=== PATIENT | female | born 1930 | race Caucasian/White ===

== ENCOUNTER 2017-02-28 16:28 | Inpatient (IN) ==
[2017-02-28] MEDS ORDERED: DILTIAZEM 50 MG/10 ML VIAL IV ONE (17:29)
[2017-02-28] MEDS ORDERED: DILTIAZEM 50 MG/10 ML VIAL IV STA (17:31)
[2017-02-28] MEDS ORDERED: DILTIAZEM 100 MG VIAL.ADD IV ONE (17:37)
--- NOTE | 2017-02-28 17:39 | Emergency Department Note ---
Daryl Hawkins Rolonda, am scribing for, and in the presence of, Chriss Siddiqui MD 17:37. Artur Hawkins Phillip K, MD, personally performed the services described in this documentation, ascribed by Sukhi Brito in my presence, and it is both accurate and complete [id number] . Arrival - Arrival ED Nursing Triage Note: pt went to [facility] for [facility]out and was sent to ER for elevated HR - pt states that she was not having any s/s of elevated heart rate or chest pain or SOB Mode of Arrival: Ambulatory - History of Present Illness Onset (ago): hour(s) Consistency: constant Severity: mild, moderate Severity scale (1-10): 4 Date of Last Menstrual Period: deepali <Chriss Siddiqui - Last Filed: 02/28/17 17:39> <Robbie Garza - Last Filed: 02/28/17 19:06> - Arrival Chief Complaint: Arrhythmia/Palpitations Stated Complaint: HIGH HEART RATE Time Seen by Provider: 02/28/17 17:31 - History of Present Illness HPI Narrative: Pt is an 86 y/o female who presents to the ED for further evaluation of elevated HR with an onset of earlier today. Pt states that she was at the clinic for a f/u on her gout when she was referred to the ED. Pt denies any PMHx of Afib and denies taking blood thinners. Pt denies CP and SOB. No other complaint/pain in ED. (Sukhi Brito) Pt is an 86 y/o female who presents to the ED for further evaluation of elevated HR with an onset of earlier today. Pt states that she was at the clinic for a f/u on her gout when she was referred to the ED. Pt denies any PMHx of Afib and denies taking blood thinners. Pt denies CP and SOB. No other complaint/pain in ED. (Chriss Siddiqui) Allergies/Adverse Reactions: Allergies Allergy/AdvReac Type Severity Reaction Status Date / Time acetaminophen [From Tylenol] Allergy Nose Bleed Verified 02/28/17 16:53 aspirin Allergy Nose Bleed Verified 02/28/17 16:53 Home Medications: Home Medications Medication Instructions Recorded Confirmed Type Multivit-Min/FA/Lycopen/Lutein 1 each PO QAM 02/28/17 02/28/17 History [Centrum Silver Tablet] Review of System - Review of System 12 point system: reviewed and no additional remarkable complaints except as stated - Review of System Constitutional: Absent: chills Eyes: Absent: discharge Head/Ears/Nose/Throat: Absent: earache Respiratory: Absent: cough Cardiovascular: Present: other (elevated HR). Absent: chest pain Gastrointestinal: Absent: abdominal pain Genitourinary female: Absent: abnormal menses Musculoskeletal: Absent: arm pain Skin: Absent: rash Neurological: Absent: headache Psychiatric: Absent: anxiety Endocrine: Absent: cold intolerance Hematological/Lymphatic: Absent: easy bleeding Allergic/Immunologic: Absent: facial swelling <Chriss Siddiqui - Last Filed: 02/28/17 17:39> Medical,Surgical,& Family Hx - Medical History Cardio: History of: Cardiovascular Problems (episode of a fib x 1 year ago) - Social History Smoking Status: Never smoker Frequency of Alcohol Use: None Type of Drug Use: None <Chriss Siddiqui - Last Filed: 02/28/17 17:39> Exam - General General appearance: alert, in no apparent distress - Head Head exam: Present: atraumatic, normocephalic - Eye Eye exam: Present: PERRL, EOMI - ENT ENT exam: Present: mucous membranes moist. Absent: mucous membranes dry - Neck Neck exam: Present: full ROM. Absent: tenderness - Chest Chest inspection: Present: symmetric chest wall rise. Absent: tenderness - Respiratory Respiratory exam: Present: normal lung sounds bilaterally. Absent: wheezes - Cardiovascular Cardiovascular exam: Present: tachycardia, irregular rhythm - Abdominal Exam Abdominal exam: Present: soft, normal bowel sounds. Absent: tenderness - Extremities Exam Extremities exam: Present: full ROM. Absent: tenderness - Back Exam Back exam: Present: full ROM. Absent: tenderness - Neurological Exam Neurological exam: Present: alert, oriented X3, CN II-XII intact - Psychiatric Psychiatric exam: Present: normal affect, normal mood - Skin Skin exam: Present: warm, dry, intact, normal color. Absent: rash <Chriss Siddiqui - Last Filed: 02/28/17 17:39> Vital Signs: Vital Signs Temperature 97.8 F 02/28/17 18:03 Pulse Rate 133 H 02/28/17 18:03 Respiratory Rate 18 02/28/17 18:03 Blood Pressure 139/96 02/28/17 18:03 O2 Sat by Pulse Oximetry 97 02/28/17 16:53 Course <Chriss Siddiqui - Last Filed: 02/28/17 17:39> <Robbie Garza - Last Filed: 02/28/17 19:06> Course Narrative: Patient went to the nurse practitioner today because both of her ankles were swollen and she was of the opinion that this was due to gout. Her ankles are not red hot or painful. When she was evaluated by the nurse practitioner it was found that she was in atrial fibrillation the onset is unknown. She has been in atrial fibrillation in the past but it spontaneously resolved. The case was discussed with the hospitalist who recommended that the turbine subassembler be contacted to admit the patient. She is currently on diltiazem drip and her rate is between 1010 and 120. Case was discussed with turbine subassembler who recommended the patient be started on Eliquis 5 mg twice a day and oral diltiazem 240 mg extended release once a day. Therefore the patient will be admitted to the hospital under the turbine subassembler Dr. Martinez (Robbie Garza) Results - Labs CBC & BMP: 02/28/17 17:26 02/28/17 17:26 <Robbie Garza - Last Filed: 02/28/17 19:06> Disposition Case discussed with: patient, patient's family <Chriss Siddiqui - Last Filed: 02/28/17 17:39> <Robbie Garza - Last Filed: 02/28/17 19:06> Clinical Impression: Atrial fibrillation with RVR Disposition: Still a Patient Condition: Guarded
[2017-02-28] MEDS ORDERED: SODIUM CHLORIDE 0.9% 100 ML IV ONE (17:40)
[2017-02-28 17:47] LABS: Basophils # 0.1 10*3/uL (0.0-0.2); Basophils % 0.7 % (0.0-0.8); Eosinophils # 0.2 10*3/uL (0.0-0.87); Eosinophils % 2.5 % (0.00-10.9); Hematocrit 42.7 VOL% (35.7-47.0); Immature Granulocytes % 0.2 %; Immature Granulocytes Absolute 0.02 #; Lymphocytes # 2.8 10*3/uL (1.4-4.0); Lymphocytes % 31.5 % (21.3-54.2); Mean Corpuscular HGB Conc 32.8 GM/DL (32-36); Mean Corpuscular Hemoglobin 29 PG (27-34); Mean Corpuscular Volume 87.5 FL (87-102); Mean Platelet Volume 9.6 FL (9.6-12.0); Monocytes # 0.9 10*3/uL (0.11-0.8); Monocytes % 9.5 % (1.7-12.7); Neutrophils % 55.6 % (38.7-73.9); Platelet Count 311 T/CUMM (130-400); Red Blood Count 4.88 MC/CUMM (3.8-5.5); Red Cell Distribution Width 13.9 % (9.3-17.3)
[2017-02-28] MEDS: DILTIAZEM INJ 100 MG in SODIUM CHLORIDE 0.9% 100 ML IV SCH (17:55)
--- NOTE | 2017-02-28 18:08 | XRay Report ---
Portable chest Exam date: 02/28/2017 5:32 PM Indication: Shortness of breath, cough Comparison: August 18, 2013 Findings: Heart size is now mildly enlarged. Increased left basilar opacity, likely atelectasis given low lung volumes. No acute osseous abnormalities. Visualized upper abdomen demonstrates no acute pathology. Impression: Left basilar atelectasis PROCEDURE INTERPRETED AT [facility] DEPARTMENT OF RADIOLOGY Final Report Signed by: Iris Novoa MD
[2017-02-28 18:30] LABS: Free T4 (Free Thyroxine) 1.3 NG/DL (0.76-1.46); Magnesium 2.1 MG/DL (1.8-2.4)
[2017-02-28 18:36] LABS: Alanine Aminotransferase 20 U/L (13-56); Albumin 3.4 G/DL (3.4-5.0); Alkaline Phosphatase 87 U/L (45-117); Aspartate Amino Transferase 24 U/L (0-37); Blood Urea Nitrogen 13 MG/DL (7-18); Calcium 9.7 MG/DL (8.5-10.1); Glucose 88 MG/DL (74-106); Osmolality,Calculated 277.4 MOS/KG (273-304); Potassium 4.3 MMOL/L (3.5-5.1); Sodium 140 MMOL/L (136-145); Total Protein 7.5 G/DL (6.4-8.3); Troponin I Only < 0.015 NG/ML (0.00-0.045)
[2017-02-28] MEDS ORDERED: MAGNESIUM SULF RIDER 2 GM in PREMIX 1 EACH IV PRN (19:07)
[2017-02-28] MEDS ORDERED: MAGNESIUM SULF RIDER 4 GM in PREMIX 1 EACH IV PRN (19:07)
[2017-02-28] MEDS ORDERED: ONDANSETRON 4 MG/2 ML VIAL IV PRN (19:07)
[2017-02-28] MEDS ORDERED: DILTIAZEM CD 120 MG CAPSULE PO STA (19:13)
[2017-02-28] MEDS ORDERED: APIXABAN 5 MG TABLET ONE (19:49)
[2017-02-28] MEDS ORDERED: DILTIAZEM CD 120 MG CAPSULE PO ONE (21:45)
[2017-02-28] MEDS: APIXABAN 5 MG TABLET PO SCH (22:02)
[2017-02-28 22:07] LABS: Troponin I Only < 0.015 NG/ML (0.00-0.045)
[2017-02-28 23:49] LABS: Troponin I Only < 0.015 NG/ML (0.00-0.045)
[2017-03-01 01:34] LABS: Troponin I Only < 0.015 NG/ML (0.00-0.045)
[2017-03-01] MEDS: DILTIAZEM INJ 100 MG in SODIUM CHLORIDE 0.9% 100 ML IV SCH (02:28)
[2017-03-01] MEDS ORDERED: DILTIAZEM CD 240 MG CAPSULE PO SCH (10:00)
--- NOTE | 2017-03-01 10:00 | Order Completion Report ---
See report scanned to EMR
[2017-03-01] MEDS: APIXABAN 5 MG TABLET PO SCH ×2 (11:25→22:24)
[2017-03-01] MEDS: DILTIAZEM CD 120 MG CAPSULE PO SCH (11:25)
[2017-03-01] MEDS: PANTOPRAZOLE 40 MG TABLET PO SCH (11:25)
--- NOTE | 2017-03-01 15:49 | Order Completion Report ---
See report scanned to EMR
--- NOTE | 2017-03-01 16:35 | Cardiology History & Physical ---
Humphrey Hawkins Lesley, NP, am scribing for, and in the presence of, Mike Brody MD 16:34. Assessment and Plan - Time spent with patient Time spent with patient: Greater than 30 minutes (record review, assessment and documentation) (1) Obesity (BMI 30-39.9) Status: Chronic Assessment and plan: SEE PLAN LISTED BELOW Current Visit: Yes (2) Advanced age Status: Chronic Assessment and plan: SEE PLAN LISTED BELOW Current Visit: Yes (3) High risk medication use Status: Acute Assessment and plan: SEE PLAN LISTED BELOW Current Visit: Yes (4) Atrial fibrillation with RVR Status: Acute Assessment and plan: SEE PLAN LISTED BELOW Current Visit: Yes History of Present Illness Chief complaint: AFib, onset uncertain History of present illness: TRIAL MANAGER: None PCP: GILBERT Welch Ms. Olivier is a 86 year old WF, who presented to her PCPs office yesterday with complaints of swelling to bilateral feet from gout. She was found to have high heart rate, and an EKG revealed atrial fibrillation. The patient does state that this happened once before approximately 3 years ago, but she did not see a manager library at that time. The patient is a fair historian. Cardiac risk factors include obesity, advanced age, sedentary lifestyle. Past medical history includes gout and arthritis. Past surgical history includes bladder tack. Family history is negative for cardiac problems, she states her mom of the flu, and her dad of being drunk. She states she only takes vitamins daily. She denies a lifetime history of smoking, alcohol use, or drug use. The patient presented to PCP with complaints of bilateral swelling in the lower extremities from count. She denied pain to her feet, but stated she was having difficulty walking due to the swelling. The swelling is improved this morning. Found to have an elevated heart rate and an EKG revealed atrial fibrillation with RVR. EKG from the emergency room shows a rate in the 130s. The patient denies shortness of breath, heart palpitations, chest pain, pressure or tightness. She states she was completely asymptomatic other than the swelling in her feet. She denies alleviating or aggravating factors. The patient received 10 mg IV bolus of Cardizem in the emergency room, and was started on a diltiazem drip. She was given diltiazem CD 240 mg once in the ER and Eliquis 5 mg was initiated. Currently, the patient is being monitored on telemetry unit. She appears to be in atrial fibrillation, with a controlled rate in the 70s- 80s. At this time we will stop the Cardizem drip, and continue oral diltiazem CD 240 mg once daily. Continue Eliquis 5 mg p.o. twice daily. Her blood pressure seems to be tolerating this with systolic in the 90s to 110 range. Labs reviewed and are essentially unremarkable other than a creatinine of 1.10, BNP 223, total bilirubin 1.6 and liver enzymes unremarkable. Thyroid studies unremarkable. Cardiac biomarkers have remained negative. Chest x-ray revealed a left basilar atelectasis, heart size mildly enlarged, no other acute processes noted. This morning I will repeat an EKG and obtain an echocardiogram. We will continue to monitor the patient on the telemetry unit throughout the day. Will also obtain a fasting lipid profile. IMPRESSION AND PLAN: 1. ATRIAL FIBRILLATION - onset unknown, rate controlled, will start oral Diltiazem CD and continue Eliquis. Pt. reports an episode of AFIB approximately 3 years ago, but did not follow up. 2. OBESITY - the patient would benefit from dietary on awake counselor on a heart healthy diet. 3. ADVANCED AGE - consider home health on discharge if needed. Patient personally interviewed and examined chart reviewed in the presence of GILBERT Hodge and is described. Post case is discussed and discussed this with the nursing staff. The patient is as above with lower extremity edema this developed persistent the last several weeks. The patient was evaluated and found to have atrial fibrillation with rapid ventricular response. On medication the patient is done well with good rate control. The patient's on anticoagulation has no contraindications to anticoagulation. She is a chads vasc score of 4 is already started on Eliquis. The duration of atrial for ablation is unknown. Also her ejection fraction 45%. 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 I did discuss the options of anticoagulation and they would prefer to stay with the Eliquis. Also discussed with them the plans that after discharge and continue anticoagulation rate control and treatment for edema as needed. We will marked the patient as an outpatient and will need at least 3 weeks and a coagulation and consider an antiarrhythmic. At some point then cardioversion will be a consideration. They voice understanding of the indications for therapy as stated and the risk. Hopefully be discharged over the next 24-48 hours. Home Medications Medication Instructions Recorded Confirmed Type Multivit-Min/FA/Lycopen/Lutein 1 each PO QAM 02/28/17 02/28/17 History [Centrum Silver Tablet] Allergies Allergy/AdvReac Type Severity Reaction Status Date / Time acetaminophen [From Tylenol] Allergy Nose Bleed Verified 02/28/17 16:53 aspirin Allergy Nose Bleed Verified 02/28/17 16:53 - Constitutional Constitutional: Absent: anorexia, chills, fatigue, frequent falls, headache(s), lethargy, malaise, weakness - EENT Nose, mouth and throat: Absent: headache(s), vertigo - Cardiovascular Cardiovascular: Present: edema. Absent: chest pain at rest, chest pain with activity, claudication, diaphoresis, dyspnea, dyspnea on exertion, radiating jaw , neck or arm pain, lightheadedness, palpitations - Respiratory Respiratory: Absent: cough, dyspnea, dyspnea on exertion, wheezing - Gastrointestinal Gastrointestinal: Absent: abdominal pain, bloating, change in bowel habits, coffee ground emesis, cramping, diarrhea, dyspepsia, heartburn, hematemesis, hematochezia, melena, nausea, vomiting - Genitourinary Genitourinary: Absent: difficulty urinating, dysuria - Musculoskeletal Musculoskeletal: Present: arthralgias, joint swelling - Neurological Neurological: Absent: abnormal gait, abnormal speech, behavioral changes, confusion, dizziness, frequent falls, syncope - Psychiatric Psychiatric: Absent: anxiety, confusion, depression - Endocrine Endocrine: Absent: fatigue - Hematologic/Lymphatic Hematologic/Lymphatic: Absent: easy bleeding Medical,Surgical,& Family Hx - Medical History Cardio: History of: Cardiac Dysrhythmia Rheumatology: History of;: Gout Gastrointestinal: No history of: GERD Musculoskeletal: History of: Musculoskeletal Problems (OA) No history of: Amputation - Surgical History Cardiac Surgeries: Patient Denies: Cardiac Catheterization Thoracic Surgeries: Patient denies;: Organ Transplant Reproductive Surgeries: Surgical HX of;: Genitourinary Surgery - Social History Smoking Status: Never smoker Frequency of Alcohol Use: None Type of Drug Use: None Marital Status: Lives With:: Spouse Functional capacity: independent ambulation Cardiology Physical Exam - Constitutional Vitals: Vital Signs Temp Pulse Resp BP Pulse Ox 97.6 F 67 16 95/59 96 03/01/17 08:00 03/01/17 08:00 03/01/17 08:00 03/01/17 08:00 03/01/17 08:00 Intake and Output 02/28/17 03/01/17 03/01/17 23:59 07:59 15:59 Intake Total 220 / 220 Balance 220 / 220 Intake: IV 100 / 100 Cardizem Inj 100 mg In Ns 100 / 100 100 ml @ 5 MG/HR 5 mls/ hr IV TITRATE GENE Rx#: [id number] Oral 120 / 120 Other: Voiding Method Toilet Bedside Commode # Voids 1 2 Weight 208 lb 205 lb Patient Weight 03/01/17 23:59 Weight 205 lb Exam: General: Appears well with no apparent distress. Obese, pleasant and cooperative. Appears comfortable. HEENT: PERRL, normocephalic, atraumatic. Mucous membranes moist. No jaundice noted. Conjunctiva moist and clear, sclerae anicteric. Neck: No JVD, no thyromegaly or lymphadenopathy noted. No carotid bruit appreciated. Cardiac: Irregular rate and rhythm. No murmur rub or gallop. PMI is nondisplaced. Lungs: Clear to auscultation without accessory muscle use to assist the respiratory pattern. No oxygen in use. Abdomen: Soft, bowel sounds normoactive. Nontender and nondistended. No abdominal bruit or thrill noted. No masses noted. Musculoskeletal: No fluid collection. Decreased range of motion is noted to knees. Extremities: No clubbing, cyanosis noted. No edema noted. Upper extremity pulses 2+. Lower extremity pulses 2+. Capillary refill less than 3 seconds. Skin: Warm and dry no unusual lesions or rashes. No skin breakdown appreciated. Neuro: Awake, alert and oriented 3. Moves all extremities well without hemiparesis or paralysis. No essential tremor is appreciated. Result/EKG - Labs CBC & BMP: 02/28/17 17:26 02/28/17 17:26 Lab Results: I have reviewed the past 24 hour labs Labs: Laboratory Results - last 24 hr 02/28/17 02/28/17 02/28/17 17:26 17:26 17:26 WBC 9.0 RBC 4.88 Hgb 14.0 Hct 42.7 MCV 87.5 MCH 29 MCHC 32.8 RDW 13.9 Plt Count 311 MPV 9.6 Neut % (Auto) 55.6 Lymph % (Auto) 31.5 [place] % (Auto) 9.5 Eos % (Auto) 2.5 Baso % (Auto) 0.7 Neut # (Auto) 5.0 Lymph # (Auto) 2.8 [place] # (Auto) 0.9 H Eos # (Auto) 0.2 Baso # (Auto) 0.1 Immature Gran % 0.2 Nucleated RBC % 0.0 Immature Gran # 0.02 Nucleated RBCs # 0.00 Immature Plt Fraction 0.0 Sodium 140 Potassium 4.3 Chloride 106 Carbon Dioxide 25 Anion Gap 13.3 BUN 13 Creatinine 1.10 H GFR Calculation 52 BUN/Creatinine Ratio 11.00 Glucose 88 Calculated Osmolality 277.4 Calcium 9.7 Magnesium 2.1 Total Bilirubin 1.60 H AST 24 ALT 20 Alkaline Phosphatase 87 Total Creatine Kinase CK-MB (CK-2) Troponin I < 0.015 B-Natriuretic Peptide Total Protein 7.5 Albumin 3.4 Globulin 4.1 H Albumin/Globulin Ratio 0.8 L Free T4 1.30 TSH 3rd Generation 2.320 02/28/17 02/28/17 02/28/17 19:14 21:11 23:09 WBC RBC Hgb Hct MCV MCH MCHC RDW Plt Count MPV Neut % (Auto) Lymph % (Auto) [place] % (Auto) Eos % (Auto) Baso % (Auto) Neut # (Auto) Lymph # (Auto) [place] # (Auto) Eos # (Auto) Baso # (Auto) Immature Gran % Nucleated RBC % Immature Gran # Nucleated RBCs # Immature Plt Fraction Sodium Potassium Chloride Carbon Dioxide Anion Gap BUN Creatinine GFR Calculation BUN/Creatinine Ratio Glucose Calculated Osmolality Calcium Magnesium Total Bilirubin AST ALT Alkaline Phosphatase Total Creatine Kinase 107 102 CK-MB (CK-2) 3.3 3.3 Troponin I < 0.015 < 0.015 B-Natriuretic Peptide 223 H Total Protein Albumin Globulin Albumin/Globulin Ratio Free T4 TSH 3rd Generation 03/01/17 00:53 WBC RBC Hgb Hct MCV MCH MCHC RDW Plt Count MPV Neut % (Auto) Lymph % (Auto) [place] % (Auto) Eos % (Auto) Baso % (Auto) Neut # (Auto) Lymph # (Auto) [place] # (Auto) Eos # (Auto) Baso # (Auto) Immature Gran % Nucleated RBC % Immature Gran # Nucleated RBCs # Immature Plt Fraction Sodium Potassium Chloride Carbon Dioxide Anion Gap BUN Creatinine GFR Calculation BUN/Creatinine Ratio Glucose Calculated Osmolality Calcium Magnesium Total Bilirubin AST ALT Alkaline Phosphatase Total Creatine Kinase 103 CK-MB (CK-2) 3.4 Troponin I < 0.015 B-Natriuretic Peptide Total Protein Albumin Globulin Albumin/Globulin Ratio Free T4 TSH 3rd Generation - Diagnostic Findings Procedure: Chest x-ray: report reviewed by me - EKG EKG results: interpreted by me EKG shows: atrial fibrillation Quality Measures - VTE Contraindication to Pharmacological VTE Prophylaxis: High Risk of Bleeding Ronn Hawkins John Timothy, MD, personally performed the services described in this documentation, ascribed by Emely Yin NP in my presence, and it is both accurate and complete 634 .
[2017-03-01] MEDS: DICLOFENAC 1% GEL 100 GM TUBE TOP SCH ×2 (18:11→22:25)
[2017-03-02 05:24] LABS: Basophils # 0.1 10*3/uL (0.0-0.2); Basophils % 0.7 % (0.0-0.8); Eosinophils # 0.2 10*3/uL (0.0-0.87); Hematocrit 36.4 VOL% (35.7-47.0); Hemoglobin 11.8 GM/DL (12.0-16.0); Immature Granulocytes % 0.3 %; Immature Granulocytes Absolute 0.02 #; Lymphocytes # 2.1 10*3/uL (1.4-4.0); Lymphocytes % 28.1 % (21.3-54.2); Mean Corpuscular HGB Conc 32.4 GM/DL (32-36); Mean Corpuscular Hemoglobin 29 PG (27-34); Mean Corpuscular Volume 87.9 FL (87-102); Mean Platelet Volume 9.6 FL (9.6-12.0); Monocytes # 0.9 10*3/uL (0.11-0.8); Monocytes % 12.1 % (1.7-12.7); Neutrophils # 4.1 10*3/uL (1.4-7.4); Neutrophils % 55.8 % (38.7-73.9); Platelet Count 251 T/CUMM (130-400); Red Blood Count 4.14 MC/CUMM (3.8-5.5); White Blood Count 7.3 T/CUMM (4-12)
[2017-03-02 05:53] LABS: Calcium 8.3 MG/DL (8.5-10.1); Magnesium 1.8 MG/DL (1.8-2.4); Risk Ratio 3.28; VLDL CHOLESTEROL 11.6 MG/DL
[2017-03-02 08:07] VITALS: BP 133/67
[2017-03-02] MEDS: DILTIAZEM CD 120 MG CAPSULE PO SCH (09:19)
[2017-03-02] MEDS: APIXABAN 5 MG TABLET PO SCH (09:19)
[2017-03-02] MEDS: PANTOPRAZOLE 40 MG TABLET PO SCH (09:21)
[2017-03-02] MEDS: DICLOFENAC 1% GEL 100 GM TUBE TOP SCH (09:23)
--- NOTE | 2017-03-02 09:58 | Discharge Summary ---
Hospital Course - Hospital Course Hospital Course: Patient was admitted to the emergency room because atrial fibrillation that is of unknown duration. She was seen by GILBERT Welch NP and sent to the emergency room because of elevated heart rate. Apparently she was seen by nurse [facility] for the purpose of arthritic symptomatology and then was inadvertently found to have increased heart rate. Patient has no prior history of heart failure coronary disease angina PND orthopnea syncope near syncope. She had noted recently she was having some lower extremity edema develop. Her echocardiogram revealed left ventricular size to be normal with mild global hypokinesis ejection fraction 45%. Right and left atrial dilated some. Valvular structures without real severe pathology but did have mild tricuspid regurgitation with moderately elevated right-sided pressures. The patient's heart rates are much better improved. She is on Eliquis. I think that we can discharge the patient on a little bit increased diltiazem to follow with her in about 3 weeks in the office. She will let us know she has any problems issues. We did discuss with her during this hospitalization the need for anticoagulation for stroke prevention and she is a significant risk for strokes. Also discussed our goal of maintaining heart rates in the and converting her after adequate period of time of anticoagulation first pharmacologic attempt followed by electrocardioversion if necessary. Her and her family voiced understanding this. We will plan on discharging today. - Time spent with patient Time with patient DS: Greater than 30 minutes Diagnosis - Discharge Diagnosis (1) Obesity (BMI 30-39.9) Status: Chronic (2) Advanced age Status: Chronic (3) High risk medication use Status: Acute (4) Atrial fibrillation with RVR Status: Acute Discharge Plan - Discharge Data Disposition: Disch To Home/Self Care Condition at Discharge: Stable Discharge Diet: advance to your usual diet Activity: resume usual activities as tolerated Hygiene: no restrictions Weight Bearing at Discharge: full weight bearing Driving: no restrictions Contact your physician if you experience:: Shortness of breath - Discharge Medications New Diclofenac 1% Gel [Voltaren 1% Gel] 1 applic TOP TID PRN #1 applic PRN Reason: Pain Diltiazem Cd Cap [Cardizem CD] 180 mg PO BID #60 capsule Apixaban [Eliquis] 5 mg PO BID #60 tablet Continue Multivit-Min/FA/Lycopen/Lutein [Centrum Silver Tablet] 1 each PO QAM - Follow Up or Referral Follow Up: Mike Brody MD [Physician] - - Forms/Instructions Exam - Constitutional Vitals: Period Temp Pulse Resp BP Sys/[place] Pulse Ox Last 24 Hr 96.6 F-99.4 F 69-105 14-20 96-133/62-79 92-95 Exam: General: no apparent distress. Obese, pleasant and cooperative. Appears comfortable. HEENT: PERRL, normocephalic, atraumatic. Mucous membranes moist. No jaundice noted. Conjunctiva moist and clear, sclerae anicteric. Neck: No JVD, no thyromegaly or lymphadenopathy noted. No carotid bruit appreciated. Cardiac: Irregular rate and rhythm. No murmur rub or gallop. PMI is nondisplaced. Lungs: Clear to auscultation without accessory muscle use to assist the respiratory pattern. No oxygen in use. Abdomen: Soft, bowel sounds normoactive. Nontender and nondistended. Musculoskeletal: No fluid collection. Decreased range of motion is noted to knees. Extremities: No clubbing, cyanosis noted. No edema noted. Upper extremity pulses 2+. Lower extremity pulses 2+. Capillary refill less than 3 seconds. Skin: Warm and dry no unusual lesions or rashes. No skin breakdown appreciated. Neuro: Awake, alert and oriented 3. Moves all extremities well without hemiparesis or paralysis. No essential tremor is appreciated. Psychiatric: Cognitive function grossly intact. Discharge Results Procedures and tests throughout hospitalization: Pending Orders 03/03/17 04:00 BMP w/ Mg [Basic Metabolic Panel w/Mg] IN AM CBC [Comp Blood Count Auto Diff] IN AM 03/04/17 04:00 BMP w/ Mg [Basic Metabolic Panel w/Mg] IN AM CBC [Comp Blood Count Auto Diff] IN AM Echocardiogram: Please see full report. Ejection fraction at 45%. Right and left atrium dilated some. There was moderately elevated right-sided pressures. Labs on day of discharge: Labs from last 24 hours 03/02/17 03/02/17 04:59 04:59 WBC 7.3 RBC 4.14 Hgb 11.8 L D Hct 36.4 MCV 87.9 MCH 29 MCHC 32.4 RDW 14.0 Plt Count 251 MPV 9.6 Neut % (Auto) 55.8 Lymph % (Auto) 28.1 [place] % (Auto) 12.1 Eos % (Auto) 3.0 Baso % (Auto) 0.7 Neut # (Auto) 4.1 Lymph # (Auto) 2.1 [place] # (Auto) 0.9 H Eos # (Auto) 0.2 Baso # (Auto) 0.1 Immature Gran % 0.3 Nucleated RBC % 0.0 Immature Gran # 0.02 Nucleated RBCs # 0.00 Immature Plt Fraction 0.0 Sodium 143 Potassium 4.0 Chloride 109 H Carbon Dioxide 26 Anion Gap 12.0 BUN 13 Creatinine 1.00 GFR Calculation 58 BUN/Creatinine Ratio 13.00 Glucose 98 Calculated Osmolality 284.0 Calcium 8.3 L Magnesium 1.8 Triglycerides 58 Cholesterol 128 LDL Cholesterol 84.0 VLDL Cholesterol 11.6 HDL Cholesterol 39 L Heart Disease Risk Ratio 3.28 - Impressions T4 and TSH were normal. Lipids are stable. Chemistries unremarkable. Nondetectable troponin. DS: Provider Date of admission: 02/28/17 19:07 Primary care physician: Kylah [facility] NP Attending physician on admission: Eliseo Martinez MD Discharging clinician: Mike Brody MD Expected date of discharge: 03/02/17
[2017-03-02] MEDS ORDERED: DILTIAZEM CD 180 MG CAPSULE PO SCH (21:00)
--- NOTE | 2017-03-06 20:22 | Order Completion Report ---
See report scanned to EMR
== END 2017-03-02 10:50 | disposition home or self-care (01) | DRG 310 ==
LOC: N.ED 16:28 → N.TELEN 19:50 → N.EDINP 20:10 → N.TELEN 20:16
PROVIDERS: ADMIT Internal Medicine Cardiovascular Disease; ATTEND Internal Medicine Cardiovascular Disease

== ENCOUNTER 2017-08-08 11:20 | Inpatient (IN) ==
[2017-08-08] MEDS ORDERED: SODIUM CHLORIDE 0.9% 1,000 ML IV STA (11:43)
[2017-08-08] MEDS ORDERED: SODIUM CHLORIDE 0.9% 1,000 ML IV PRN ×3 (11:49→20:07)
[2017-08-08 11:56] LABS: Basophils # 0.1 10*3/uL (0.0-0.2); Basophils % 0.4 % (0.0-0.8); Eosinophils % 0.3 % (0.00-10.9); Hematocrit 31.4 VOL% (35.7-47.0); Hemoglobin 9.3 GM/DL (12.0-16.0); Immature Granulocytes % 0.6 %; Immature Granulocytes Absolute 0.07 #; Lymphocytes # 1.9 10*3/uL (1.4-4.0); Lymphocytes % 16.5 % (21.3-54.2); Mean Corpuscular HGB Conc 29.6 GM/DL (32-36); Mean Corpuscular Hemoglobin 25 PG (27-34); Mean Corpuscular Volume 84.4 FL (87-102); Mean Platelet Volume 9.2 FL (9.6-12.0); Monocytes # 1.2 10*3/uL (0.11-0.8); Neutrophils # 8.3 10*3/uL (1.4-7.4); Neutrophils % 72.2 % (38.7-73.9); Platelet Count 396 T/CUMM (130-400); Red Blood Count 3.72 MC/CUMM (3.8-5.5); Red Cell Distribution Width 15.8 % (9.3-17.3); White Blood Count 11.5 T/CUMM (4-12)
[2017-08-08 12:03] LABS: INR 1.1; PT Patient Result 11.3 SECS
[2017-08-08 12:15] LABS: Albumin 2.2 G/DL (3.4-5.0); Bilirubin,Total 0.8 MG/DL (0.2-1.0); Osmolality,Calculated 279.4 MOS/KG (273-304); Potassium 4.2 MMOL/L (3.5-5.1); Total Protein 5.9 G/DL (6.4-8.3)
[2017-08-08 12:30] LABS: Apearance,Urine Slightly Hazy (Clear); Bacteria,Urine Few /HPF (Few); Bilirubin,Urine Negative (Negative); Blood, Urine Negative (Negative); Glucose,Urine (UA) Negative (Negative); Hyaline Casts,Urine 3 /LPF (0-3); Ketones,Urine Negative (Negative); Mucus,Urine Occasional /LPF (Occasional); Nitrite,Urine Negative (Negative); Protein,Urine 100 MG/DL; RBC,Urine 1 /HPF (0-4); Urine Specific Gravity 1.016 (1.001-1.035); Urine Urobilinogen < 2.0 EU/DL (0.2-1.0); WBC,Urine 3 /HPF (0-6)
[2017-08-08 12:31] LABS: Urine Color Yellow (Yellow)
[2017-08-08 19:41] LABS: Basophils % 0.4 % (0.0-0.8); Eosinophils # 0.1 10*3/uL (0.0-0.87); Eosinophils % 0.7 % (0.00-10.9); Hematocrit 34.9 VOL% (35.7-47.0); Hemoglobin 10.9 GM/DL (12.0-16.0); Immature Granulocytes % 0.4 %; Immature Granulocytes Absolute 0.04 #; Lymphocytes # 2.3 10*3/uL (1.4-4.0); Lymphocytes % 21.3 % (21.3-54.2); Mean Corpuscular HGB Conc 31.2 GM/DL (32-36); Mean Corpuscular Hemoglobin 26 PG (27-34); Mean Corpuscular Volume 83.1 FL (87-102); Monocytes % 9.4 % (1.7-12.7); Neutrophils # 7.4 10*3/uL (1.4-7.4); Neutrophils % 67.8 % (38.7-73.9); Platelet Count 392 T/CUMM (130-400); Red Cell Distribution Width 15.6 % (9.3-17.3); White Blood Count 10.9 T/CUMM (4-12)
[2017-08-08] MEDS ORDERED: ACETAMINOPHEN 325 MG TABLET PO PRN (19:56)
[2017-08-08 20:01] LABS: Calcium 8.1 MG/DL (8.5-10.1); Osmolality,Calculated 281.1 MOS/KG (273-304); Potassium 4.4 MMOL/L (3.5-5.1)
[2017-08-08] MEDS ORDERED: PROTHROMBIN COMPLEX IV ONE ×2 (20:02→20:07)
[2017-08-08 20:12] LABS: INR 1.1; PT Patient Result 11.1 SECS
[2017-08-08] MEDS: SODIUM CHLORIDE 0.45% 1,000 ML IV SCH (23:06)
[2017-08-08] MEDS: DILTIAZEM CD 180 MG CAPSULE PO SCH (23:24)
[2017-08-09 06:13] LABS: Basophils # 0.1 10*3/uL (0.0-0.2); Basophils % 0.5 % (0.0-0.8); Eosinophils # 0.1 10*3/uL (0.0-0.87); Eosinophils % 0.9 % (0.00-10.9); Hematocrit 34.2 VOL% (35.7-47.0); Hemoglobin 10.1 GM/DL (12.0-16.0); Immature Granulocytes % 0.6 %; Immature Granulocytes Absolute 0.07 #; Lymphocytes % 32.7 % (21.3-54.2); Mean Corpuscular HGB Conc 29.5 GM/DL (32-36); Mean Corpuscular Hemoglobin 25 PG (27-34); Mean Corpuscular Volume 85.9 FL (87-102); Mean Platelet Volume 9.3 FL (9.6-12.0); Monocytes # 1.3 10*3/uL (0.11-0.8); Monocytes % 10.3 % (1.7-12.7); Neutrophils # 6.8 10*3/uL (1.4-7.4); Platelet Count 371 T/CUMM (130-400); Red Blood Count 3.98 MC/CUMM (3.8-5.5); Red Cell Distribution Width 15.5 % (9.3-17.3); White Blood Count 12.4 T/CUMM (4-12)
[2017-08-09 07:42] LABS: Calcium 8.1 MG/DL (8.5-10.1); Potassium 4.2 MMOL/L (3.5-5.1)
[2017-08-09] MEDS: PANTOPRAZOLE 40 MG TABLET PO SCH (10:44)
[2017-08-09] MEDS: MULTIVITAMIN (CENTRUM) TABLET PO SCH (10:44)
[2017-08-09] MEDS: DILTIAZEM CD 180 MG CAPSULE PO SCH ×2 (10:47→20:40)
[2017-08-09] MEDS ORDERED: SODIUM CHLORIDE 0.9% 250 ML IV ONE (11:14)
[2017-08-09] MEDS ORDERED: FLECAINIDE 100 MG TABLET PO SCH (11:30)
[2017-08-10] MEDS: SODIUM CHLORIDE 0.45% 1,000 ML IV SCH (02:05)
[2017-08-10 02:51] LABS: Basophils # 0.1 10*3/uL (0.0-0.2); Basophils % 0.7 % (0.0-0.8); Eosinophils # 0.1 10*3/uL (0.0-0.87); Eosinophils % 1.2 % (0.00-10.9); Hematocrit 34.9 VOL% (35.7-47.0); Hemoglobin 10.7 GM/DL (12.0-16.0); Immature Granulocytes % 0.5 %; Immature Granulocytes Absolute 0.05 #; Lymphocytes # 2.8 10*3/uL (1.4-4.0); Lymphocytes % 25.9 % (21.3-54.2); Mean Corpuscular HGB Conc 30.7 GM/DL (32-36); Mean Corpuscular Hemoglobin 26 PG (27-34); Mean Corpuscular Volume 85.3 FL (87-102); Mean Platelet Volume 9.2 FL (9.6-12.0); Monocytes # 1.3 10*3/uL (0.11-0.8); Monocytes % 11.9 % (1.7-12.7); Neutrophils # 6.5 10*3/uL (1.4-7.4); Neutrophils % 59.8 % (38.7-73.9); Platelet Count 349 T/CUMM (130-400); Red Blood Count 4.09 MC/CUMM (3.8-5.5); Red Cell Distribution Width 15.3 % (9.3-17.3); White Blood Count 10.8 T/CUMM (4-12)
[2017-08-10 04:40] LABS: Calcium 8.1 MG/DL (8.5-10.1); Potassium 4.5 MMOL/L (3.5-5.1)
[2017-08-10] MEDS: BISACODYL 5 MG TABLET PO SCH ×3 (09:13→23:30)
[2017-08-10] MEDS: PANTOPRAZOLE 40 MG TABLET PO SCH (09:13)
[2017-08-10] MEDS: MULTIVITAMIN (CENTRUM) TABLET PO SCH (09:13)
[2017-08-10] MEDS: DILTIAZEM CD 180 MG CAPSULE PO SCH ×2 (09:13→21:12)
[2017-08-10] MEDS ORDERED: POLYETHYLENE GLYCOL POWDER 255 GM BOTTLE PO ONE (18:00)
[2017-08-11] MEDS: PANTOPRAZOLE 40 MG TABLET PO SCH (10:50)
[2017-08-11] MEDS: DILTIAZEM CD 180 MG CAPSULE PO SCH ×2 (10:50→21:16)
[2017-08-11] MEDS: MULTIVITAMIN (CENTRUM) TABLET PO SCH (10:51)
[2017-08-11] MEDS: SODIUM CHLORIDE 0.45% 1,000 ML IV SCH ×2 (11:26→21:17)
[2017-08-12] MEDS: SODIUM CHLORIDE 0.45% 1,000 ML IV SCH ×2 (04:14→07:10)
[2017-08-12 05:11] LABS: Basophils # 0.1 10*3/uL (0.0-0.2); Basophils % 0.5 % (0.0-0.8); Eosinophils # 0.2 10*3/uL (0.0-0.87); Eosinophils % 1.4 % (0.00-10.9); Hematocrit 34.9 VOL% (35.7-47.0); Hemoglobin 10.9 GM/DL (12.0-16.0); Immature Granulocytes % 0.4 %; Immature Granulocytes Absolute 0.04 #; Lymphocytes # 1.8 10*3/uL (1.4-4.0); Lymphocytes % 17.2 % (21.3-54.2); Mean Corpuscular HGB Conc 31.2 GM/DL (32-36); Mean Corpuscular Hemoglobin 26 PG (27-34); Mean Corpuscular Volume 84.5 FL (87-102); Mean Platelet Volume 8.9 FL (9.6-12.0); Monocytes # 1.1 10*3/uL (0.11-0.8); Monocytes % 10.3 % (1.7-12.7); Neutrophils # 7.5 10*3/uL (1.4-7.4); Neutrophils % 70.2 % (38.7-73.9); Platelet Count 311 T/CUMM (130-400); Red Blood Count 4.13 MC/CUMM (3.8-5.5); Red Cell Distribution Width 15.4 % (9.3-17.3); White Blood Count 10.7 T/CUMM (4-12)
[2017-08-12 06:05] LABS: Osmolality,Calculated 289.4 MOS/KG (273-304); Potassium 4.7 MMOL/L (3.5-5.1)
[2017-08-12] MEDS: MULTIVITAMIN (CENTRUM) TABLET PO SCH (09:52)
[2017-08-12] MEDS: DILTIAZEM CD 180 MG CAPSULE PO SCH ×2 (09:52→20:53)
[2017-08-12] MEDS: PANTOPRAZOLE 40 MG TABLET PO SCH (09:52)
[2017-08-12] MEDS ORDERED: DIAZEPAM 5 MG TABLET PO ONE (13:00)
[2017-08-13 05:57] LABS: Basophils # 0.1 10*3/uL (0.0-0.2); Basophils % 0.5 % (0.0-0.8); Eosinophils # 0.1 10*3/uL (0.0-0.87); Eosinophils % 1.2 % (0.00-10.9); Hematocrit 35.7 VOL% (35.7-47.0); Hemoglobin 10.9 GM/DL (12.0-16.0); Immature Granulocytes % 0.4 %; Immature Granulocytes Absolute 0.04 #; Lymphocytes # 1.9 10*3/uL (1.4-4.0); Lymphocytes % 17.2 % (21.3-54.2); Mean Corpuscular HGB Conc 30.5 GM/DL (32-36); Mean Corpuscular Hemoglobin 26 PG (27-34); Mean Corpuscular Volume 84.4 FL (87-102); Mean Platelet Volume 9.3 FL (9.6-12.0); Monocytes # 1.2 10*3/uL (0.11-0.8); Monocytes % 11.2 % (1.7-12.7); Neutrophils # 7.5 10*3/uL (1.4-7.4); Neutrophils % 69.5 % (38.7-73.9); Platelet Count 314 T/CUMM (130-400); Red Blood Count 4.23 MC/CUMM (3.8-5.5); Red Cell Distribution Width 15.6 % (9.3-17.3); White Blood Count 10.8 T/CUMM (4-12)
[2017-08-13 06:27] LABS: Osmolality,Calculated 283.8 MOS/KG (273-304)
[2017-08-13] MEDS: DILTIAZEM CD 180 MG CAPSULE PO SCH (08:46)
[2017-08-13] MEDS: MULTIVITAMIN (CENTRUM) TABLET PO SCH (08:47)
[2017-08-13] MEDS: PANTOPRAZOLE 40 MG TABLET PO SCH (08:47)
[2017-08-13 11:36] VITALS: BP 108/59
[2017-08-13] MEDS: SODIUM CHLORIDE 0.45% 1,000 ML IV SCH (13:41)
== END 2017-08-13 13:45 | disposition hospice, home (50) | DRG 356 ==
LOC: EDUNIT# → EDBD → N.ED 11:20 → N.EDINP 20:15 → N.2E 20:24

== ENCOUNTER 2017-08-21 09:27 | Inpatient (IN) ==
[2017-08-21] MEDS ORDERED: ONDANSETRON 4 MG/2 ML VIAL IV PRN (10:42)
[2017-08-21] MEDS ORDERED: PROMETHAZINE 25 MG/1 ML VIAL IM PRN (10:42)
[2017-08-21 11:31] LABS: Basophils # 0.1 10*3/uL (0.0-0.2); Basophils % 0.6 % (0.0-0.8); Eosinophils # 0.2 10*3/uL (0.0-0.87); Eosinophils % 1.4 % (0.00-10.9); Hematocrit 37.5 VOL% (35.7-47.0); Hemoglobin 11.4 GM/DL (12.0-16.0); Immature Granulocytes % 0.5 %; Immature Granulocytes Absolute 0.06 #; Lymphocytes # 1.8 10*3/uL (1.4-4.0); Lymphocytes % 16.4 % (21.3-54.2); Mean Corpuscular HGB Conc 30.4 GM/DL (32-36); Mean Corpuscular Hemoglobin 25 PG (27-34); Mean Corpuscular Volume 83.1 FL (87-102); Mean Platelet Volume 9.3 FL (9.6-12.0); Monocytes % 9.1 % (1.7-12.7); Neutrophils # 7.9 10*3/uL (1.4-7.4); Platelet Count 299 T/CUMM (130-400); Red Blood Count 4.51 MC/CUMM (3.8-5.5); Red Cell Distribution Width 15.9 % (9.3-17.3); White Blood Count 10.9 T/CUMM (4-12)
[2017-08-21 11:54] LABS: PT Patient Result 10.9 SECS; Partial Thromboplastin Time 24.8 SECS (0-40)
[2017-08-21 12:00] LABS: Albumin 2.3 G/DL (3.4-5.0); Bilirubin,Total 0.9 MG/DL (0.2-1.0); Calcium 8.1 MG/DL (8.5-10.1); Osmolality,Calculated 280.3 MOS/KG (273-304); Potassium 4.4 MMOL/L (3.5-5.1); Total Protein 5.3 G/DL (6.4-8.3)
[2017-08-21] MEDS: ENOXAPARIN 40 MG/0.4 ML SYRINGE SUBCUT SCH (18:01)
[2017-08-21] MEDS: FLECAINIDE 100 MG TABLET PO SCH (21:03)
[2017-08-22] MEDS: LACTATED RINGERS 1,000 ML IV SCH ×4 (00:36→23:57)
[2017-08-22] MEDS ORDERED: ERTAPENEM 1,000 MG in SODIUM CHLORIDE 0.9% 100 ML IV ONE (06:00)
[2017-08-22] MEDS: PANTOPRAZOLE 40 MG TABLET PO SCH (08:01)
[2017-08-22] MEDS: FLECAINIDE 100 MG TABLET PO SCH ×2 (08:01→20:51)
[2017-08-22] MEDS: ALVIMOPAN 12 MG CAPSULE PO SCH ×2 (08:36→20:51)
[2017-08-22] MEDS ORDERED: TISSUE ADHESIVE 1 EACH APPLICATOR TOP ONE (10:42)
[2017-08-22] MEDS ORDERED: HEPARIN/NACL 0.9% 2 UNITS/ML 500 ML IV ONE (11:53)
[2017-08-22] MEDS ORDERED: SUGAMMADEX 200 MG/2 ML VIAL IV ONE (14:47)
[2017-08-22] MEDS ORDERED: ETOMIDATE 40 MG/20 ML VIAL IV ONE (15:42)
[2017-08-22] MEDS ORDERED: ROCURONIUM 100 MG/10 ML VIAL IV ONE (15:42)
[2017-08-22] MEDS ORDERED: PHENYLEPHRINE 10 MG/1 ML VIAL IV ONE (15:42)
[2017-08-22] MEDS ORDERED: PHENYLEPHRINE 1 MG/10 ML SYRINGE IV ONE (15:42)
[2017-08-22] MEDS ORDERED: ONDANSETRON 4 MG/2 ML VIAL ONE (15:42)
[2017-08-22] MEDS ORDERED: fentaNYL 100 MCG/2 ML VIAL ONE (15:42)
[2017-08-22] MEDS ORDERED: SODIUM CHLORIDE 0.9% 250 ML IV ONE (15:42)
[2017-08-22] MEDS ORDERED: SEVOFLURANE 1 UNIT/15 MINUTE INH ONE (15:42)
[2017-08-22] MEDS ORDERED: GLYCOPYRROLATE 0.4 MG/2 ML VIAL ONE (15:42)
[2017-08-22] MEDS ORDERED: NEOSTIGMINE 10 MG/10 ML VIAL ONE (15:42)
[2017-08-22] MEDS ORDERED: LACTATED RINGERS 1,000 ML IV ONE (15:42)
[2017-08-22] MEDS: ENOXAPARIN 40 MG/0.4 ML SYRINGE SUBCUT SCH (18:39)
[2017-08-22] MEDS: MORPHINE 2 MG/1 ML SYRINGE IV PRN (19:30)
[2017-08-23] MEDS: MORPHINE 2 MG/1 ML SYRINGE IV PRN ×3 (00:13→17:57)
[2017-08-23] MEDS: LACTATED RINGERS 1,000 ML IV SCH (00:15)
[2017-08-23] MEDS ORDERED: SODIUM CHLORIDE 0.9% 1,000 ML IV ONE (04:33)
[2017-08-23 06:26] LABS: Basophils % 0.2 % (0.0-0.8); Hematocrit 33.9 VOL% (35.7-47.0); Hemoglobin 10.1 GM/DL (12.0-16.0); Immature Granulocytes % 0.7 %; Immature Granulocytes Absolute 0.13 #; Lymphocytes # 1.1 10*3/uL (1.4-4.0); Lymphocytes % 6.4 % (21.3-54.2); Mean Corpuscular HGB Conc 29.8 GM/DL (32-36); Mean Corpuscular Hemoglobin 25 PG (27-34); Mean Corpuscular Volume 85.4 FL (87-102); Mean Platelet Volume 9.1 FL (9.6-12.0); Monocytes % 5.6 % (1.7-12.7); Neutrophils # 15.4 10*3/uL (1.4-7.4); Neutrophils % 87.1 % (38.7-73.9); Platelet Count 247 T/CUMM (130-400); Red Blood Count 3.97 MC/CUMM (3.8-5.5); Red Cell Distribution Width 15.9 % (9.3-17.3); White Blood Count 17.7 T/CUMM (4-12)
[2017-08-23 06:55] LABS: Calcium 7.7 MG/DL (8.5-10.1); Potassium 4.6 MMOL/L (3.5-5.1)
[2017-08-23] MEDS ORDERED: MAGNESIUM SULF RIDER 4 GM in PREMIX 1 EACH IV ONE (07:22)
[2017-08-23] MEDS: ALVIMOPAN 12 MG CAPSULE PO SCH ×2 (09:58→21:05)
[2017-08-23] MEDS: PANTOPRAZOLE 40 MG TABLET PO SCH (09:58)
[2017-08-23] MEDS: FLECAINIDE 100 MG TABLET PO SCH ×2 (09:58→21:05)
[2017-08-23 12:09] LABS: Hematocrit 31.8 VOL% (35.7-47.0)
[2017-08-23] MEDS: ENOXAPARIN 40 MG/0.4 ML SYRINGE SUBCUT SCH (13:36)
[2017-08-23] MEDS ORDERED: traMADol 50 MG TABLET PO PRN (15:15)
[2017-08-24 05:33] LABS: Basophils % 0.2 % (0.0-0.8); Eosinophils % 0.3 % (0.00-10.9); Hematocrit 32.8 VOL% (35.7-47.0); Hemoglobin 9.9 GM/DL (12.0-16.0); Immature Granulocytes % 0.5 %; Immature Granulocytes Absolute 0.07 #; Lymphocytes # 1.9 10*3/uL (1.4-4.0); Lymphocytes % 13.3 % (21.3-54.2); Mean Corpuscular HGB Conc 30.2 GM/DL (32-36); Mean Corpuscular Hemoglobin 25 PG (27-34); Mean Corpuscular Volume 83.5 FL (87-102); Mean Platelet Volume 9.5 FL (9.6-12.0); Monocytes # 1.3 10*3/uL (0.11-0.8); Monocytes % 9.4 % (1.7-12.7); Neutrophils # 10.9 10*3/uL (1.4-7.4); Neutrophils % 76.3 % (38.7-73.9); Platelet Count 300 T/CUMM (130-400); Red Blood Count 3.93 MC/CUMM (3.8-5.5); White Blood Count 14.3 T/CUMM (4-12)
[2017-08-24] MEDS: ALVIMOPAN 12 MG CAPSULE PO SCH (09:59)
[2017-08-24] MEDS: FLECAINIDE 100 MG TABLET PO SCH (09:59)
[2017-08-24] MEDS: PANTOPRAZOLE 40 MG TABLET PO SCH (09:59)
[2017-08-24 12:54] VITALS: BP 124/59
[2017-08-24] MEDS: ENOXAPARIN 40 MG/0.4 ML SYRINGE SUBCUT SCH (13:34)
== END 2017-08-24 13:24 | disposition home health service (06) | DRG 329 ==
LOC: N.4E 09:27 → EDSTATUS 08-22 12:30
PROVIDERS: ADMIT Surgery; ATTEND Surgery

== ENCOUNTER 2017-12-02 11:03 | Inpatient (IN) ==
[2017-12-02 12:01] LABS: Basophils % 0.3 % (0.0-0.8); Eosinophils # 0.1 10*3/uL (0.0-0.87); Eosinophils % 0.5 % (0.00-10.9); Hematocrit 37.5 VOL% (35.7-47.0); Hemoglobin 11.8 GM/DL (12.0-16.0); Immature Granulocytes % 0.7 %; Immature Granulocytes Absolute 0.07 #; Lymphocytes # 0.8 10*3/uL (1.4-4.0); Lymphocytes % 7.9 % (21.3-54.2); Mean Corpuscular HGB Conc 31.5 GM/DL (32-36); Mean Corpuscular Hemoglobin 26 PG (27-34); Mean Corpuscular Volume 82.2 FL (87-102); Mean Platelet Volume 8.7 FL (9.6-12.0); Monocytes # 1.2 10*3/uL (0.11-0.8); Monocytes % 11.5 % (1.7-12.7); Neutrophils # 8.1 10*3/uL (1.4-7.4); Neutrophils % 79.1 % (38.7-73.9); Platelet Count 401 T/CUMM (130-400); Red Blood Count 4.56 MC/CUMM (3.8-5.5); Red Cell Distribution Width 15.4 % (9.3-17.3); White Blood Count 10.2 T/CUMM (4-12)
[2017-12-02 12:31] LABS: Albumin 2.7 G/DL (3.4-5.0); Bilirubin,Total 1.3 MG/DL (0.2-1.0); Calcium 8.2 MG/DL (8.5-10.1); Osmolality,Calculated 266.4 MOS/KG (273-304); Potassium 5.8 MMOL/L (3.5-5.1); Total Protein 5.7 G/DL (6.4-8.3)
[2017-12-02 12:32] LABS: Apearance,Urine Slightly Hazy (Clear); Bacteria,Urine Occasional /HPF (Few); Bilirubin,Urine Negative (Negative); Blood, Urine Negative (Negative); Glucose,Urine (UA) Negative (Negative); Hyaline Casts,Urine 69 /LPF (0-3); Ketones,Urine Negative (Negative); Mucus,Urine Many /LPF (Occasional); Nitrite,Urine Positive (Negative); Protein,Urine 30 MG/DL; Squamous Epithelial Cell,Urine Occasional /HPF (0-10); Urine Color Amber (Yellow); Urine Specific Gravity 1.018 (1.001-1.035); WBC,Urine 15 /HPF (0-6)
[2017-12-02] MEDS ORDERED: cefTRIAXone 1,000 MG in SODIUM CHLORIDE 0.9% 100 ML IV STA (13:55)
[2017-12-02] MEDS ORDERED: ONDANSETRON 4 MG/2 ML VIAL IV PRN (15:26)
[2017-12-02] MEDS ORDERED: ACETAMINOPHEN 325 MG TABLET PO PRN (15:26)
[2017-12-02] MEDS ORDERED: traMADol 50 MG TABLET PO PRN (15:49)
[2017-12-02] MEDS: FLECAINIDE 100 MG TABLET PO SCH (20:55)
[2017-12-02] MEDS: PANTOPRAZOLE 40 MG VIAL IV SCH (20:55)
[2017-12-02] MEDS: SODIUM CHLORIDE 0.9% 1,000 ML IV SCH (20:56)
[2017-12-03 05:01] LABS: Basophils % 0.3 % (0.0-0.8); Eosinophils # 0.1 10*3/uL (0.0-0.87); Eosinophils % 0.7 % (0.00-10.9); Hematocrit 36.9 VOL% (35.7-47.0); Hemoglobin 11.8 GM/DL (12.0-16.0); Immature Granulocytes % 0.6 %; Immature Granulocytes Absolute 0.06 #; Lymphocytes % 10.2 % (21.3-54.2); Mean Corpuscular Hemoglobin 26 PG (27-34); Mean Corpuscular Volume 80.7 FL (87-102); Mean Platelet Volume 9.5 FL (9.6-12.0); Monocytes # 1.1 10*3/uL (0.11-0.8); Monocytes % 11.8 % (1.7-12.7); Neutrophils # 7.4 10*3/uL (1.4-7.4); Neutrophils % 76.4 % (38.7-73.9); Platelet Count 372 T/CUMM (130-400); Red Blood Count 4.57 MC/CUMM (3.8-5.5); Red Cell Distribution Width 15.5 % (9.3-17.3); White Blood Count 9.6 T/CUMM (4-12)
[2017-12-03 05:19] LABS: Lactic Acid 0.9 MMOL/L (0.4-2.0)
[2017-12-03 05:22] LABS: Albumin 2.4 G/DL (3.4-5.0); Bilirubin,Total 1.7 MG/DL (0.2-1.0); Calcium 8.7 MG/DL (8.5-10.1); Osmolality,Calculated 266.4 MOS/KG (273-304); Potassium 5.2 MMOL/L (3.5-5.1); Total Protein 5.8 G/DL (6.4-8.3)
[2017-12-03 05:29] LABS: Risk Ratio 3.55; Thyroid Stimulating Hormone 4.1 uIU/ml (0.358-3.74); VLDL CHOLESTEROL 20.6 MG/DL
[2017-12-03] MEDS: SODIUM CHLORIDE 0.9% 1,000 ML IV SCH ×2 (06:01→18:27)
[2017-12-03] MEDS ORDERED: cefTRIAXone 1,000 MG in SYRINGE 1 EACH IV SCH (14:00)
[2017-12-03] MEDS: FLECAINIDE 100 MG TABLET PO SCH (16:20)
[2017-12-03] MEDS: PANTOPRAZOLE 40 MG VIAL IV SCH ×2 (16:30→22:10)
[2017-12-03] MEDS ORDERED: FUROSEMIDE 40 MG/4 ML VIAL IV ONE (17:23)
[2017-12-03] MEDS: METOCLOPRAMIDE 10 MG/2 ML VIAL IV SCH (18:25)
[2017-12-03] MEDS ORDERED: APIXABAN 5 MG TABLET PO SCH (21:00)
[2017-12-03] MEDS ORDERED: APIXABAN 2.5 MG TABLET PO SCH (21:00)
[2017-12-03] MEDS: METOPROLOL TARTRATE 25 MG TABLET PO SCH (22:09)
[2017-12-03] MEDS: ZINC OXIDE PASTE 113 GM TUBE TOP SCH (22:09)
[2017-12-04] MEDS: METOCLOPRAMIDE 10 MG/2 ML VIAL IV SCH ×4 (00:57→18:18)
[2017-12-04 05:21] LABS: Basophils % 0.2 % (0.0-0.8); Eosinophils % 0.1 % (0.00-10.9); Hematocrit 38.2 VOL% (35.7-47.0); Immature Granulocytes % 0.6 %; Immature Granulocytes Absolute 0.08 #; Lymphocytes # 0.8 10*3/uL (1.4-4.0); Lymphocytes % 6.3 % (21.3-54.2); Mean Corpuscular HGB Conc 31.4 GM/DL (32-36); Mean Corpuscular Hemoglobin 26 PG (27-34); Mean Corpuscular Volume 81.6 FL (87-102); Monocytes # 1.3 10*3/uL (0.11-0.8); Monocytes % 9.5 % (1.7-12.7); Neutrophils # 11.1 10*3/uL (1.4-7.4); Neutrophils % 83.3 % (38.7-73.9); Platelet Count 382 T/CUMM (130-400); Red Blood Count 4.68 MC/CUMM (3.8-5.5); Red Cell Distribution Width 15.8 % (9.3-17.3); White Blood Count 13.3 T/CUMM (4-12)
[2017-12-04 05:46] LABS: Calcium 8.8 MG/DL (8.5-10.1); Osmolality,Calculated 272.1 MOS/KG (273-304)
[2017-12-04] MEDS ORDERED: cefTRIAXone 2,000 MG in SYRINGE 1 EACH IV SCH (09:00)
[2017-12-04] MEDS: PANTOPRAZOLE 40 MG VIAL IV SCH ×2 (10:37→21:13)
[2017-12-04] MEDS: METOPROLOL TARTRATE 25 MG TABLET PO SCH ×2 (10:39→21:12)
[2017-12-04] MEDS ORDERED: LEVOFLOXACIN INJ 500 MG in PREMIX 1 EACH IV SCH (14:30)
[2017-12-04] MEDS: SODIUM CHLORIDE 0.9% 1,000 ML IV SCH ×2 (14:31→21:18)
[2017-12-04] MEDS: ZINC OXIDE PASTE 113 GM TUBE TOP SCH ×2 (14:33→21:18)
[2017-12-05] MEDS: METOCLOPRAMIDE 10 MG/2 ML VIAL IV SCH ×4 (00:10→17:40)
[2017-12-05 04:14] LABS: Basophils % 0.1 % (0.0-0.8); Eosinophils % 0.1 % (0.00-10.9); Hematocrit 39.7 VOL% (35.7-47.0); Hemoglobin 12.3 GM/DL (12.0-16.0); Immature Granulocytes % 0.8 %; Immature Granulocytes Absolute 0.11 #; Lymphocytes # 0.7 10*3/uL (1.4-4.0); Mean Corpuscular Hemoglobin 26 PG (27-34); Mean Corpuscular Volume 82.7 FL (87-102); Monocytes # 1.4 10*3/uL (0.11-0.8); Monocytes % 10.3 % (1.7-12.7); Neutrophils # 11.3 10*3/uL (1.4-7.4); Neutrophils % 83.7 % (38.7-73.9); Platelet Count 385 T/CUMM (130-400); Red Cell Distribution Width 15.6 % (9.3-17.3); White Blood Count 13.5 T/CUMM (4-12)
[2017-12-05 05:05] LABS: Albumin 2.2 G/DL (3.4-5.0); Bilirubin,Total 1.1 MG/DL (0.2-1.0); Calcium 9.1 MG/DL (8.5-10.1); Total Protein 6.5 G/DL (6.4-8.3)
[2017-12-05] MEDS ORDERED: BENZOCAINE 20% SPRAY 57 GM CAN TOP ONE (10:47)
[2017-12-05] MEDS ORDERED: ENOXAPARIN 100 MG/ML SYRINGE SUBCUT SCH (11:00)
[2017-12-05] MEDS: PANTOPRAZOLE 40 MG VIAL IV SCH ×2 (11:10→20:25)
[2017-12-05] MEDS ORDERED: hydrALAZINE 20 MG/1 ML VIAL IV PRN (11:17)
[2017-12-05] MEDS: ZINC OXIDE PASTE 113 GM TUBE TOP SCH ×2 (13:40→20:25)
[2017-12-05] MEDS: SODIUM CHLORIDE 0.9% 1,000 ML IV SCH ×2 (14:13→17:01)
[2017-12-05] MEDS: METOPROLOL TARTRATE 5 MG/5 ML VIAL IV SCH ×2 (14:14→17:37)
[2017-12-05] MEDS: LEVOFLOXACIN INJ 250 MG in PREMIX 1 EACH IV SCH (14:17)
[2017-12-06] MEDS: METOCLOPRAMIDE 10 MG/2 ML VIAL IV SCH ×5 (01:05→23:48)
[2017-12-06] MEDS: METOPROLOL TARTRATE 5 MG/5 ML VIAL IV SCH ×5 (01:06→23:44)
[2017-12-06] MEDS: SODIUM CHLORIDE 0.9% 1,000 ML IV SCH ×5 (01:07→20:51)
[2017-12-06 07:42] LABS: Calcium 8.6 MG/DL (8.5-10.1)
[2017-12-06 08:50] LABS: Basophils % 0.3 % (0.0-0.8); Eosinophils % 0.2 % (0.00-10.9); Hematocrit 41.1 VOL% (35.7-47.0); Hemoglobin 12.3 GM/DL (12.0-16.0); Immature Granulocytes Absolute 0.11 #; Lymphocytes # 0.9 10*3/uL (1.4-4.0); Lymphocytes % 8.5 % (21.3-54.2); Mean Corpuscular HGB Conc 29.9 GM/DL (32-36); Mean Corpuscular Hemoglobin 26 PG (27-34); Mean Corpuscular Volume 85.6 FL (87-102); Mean Platelet Volume 9.2 FL (9.6-12.0); Monocytes # 1.5 10*3/uL (0.11-0.8); Monocytes % 13.9 % (1.7-12.7); Neutrophils # 8.1 10*3/uL (1.4-7.4); Neutrophils % 76.1 % (38.7-73.9); Platelet Count 349 T/CUMM (130-400); Red Cell Distribution Width 15.9 % (9.3-17.3); White Blood Count 10.6 T/CUMM (4-12)
[2017-12-06] MEDS: METOPROLOL TARTRATE 25 MG TABLET PO SCH (10:19)
[2017-12-06] MEDS: PANTOPRAZOLE 40 MG VIAL IV SCH ×2 (10:23→20:25)
[2017-12-06] MEDS: ZINC OXIDE PASTE 113 GM TUBE TOP SCH ×2 (11:06→20:25)
[2017-12-06] MEDS ORDERED: ceFAZolin 1,000 MG in SYRINGE 1 EACH IV ONE (12:08)
[2017-12-06] MEDS: LEVOFLOXACIN INJ 250 MG in PREMIX 1 EACH IV SCH (14:41)
[2017-12-06] MEDS ORDERED: PROPOFOL 200 MG/20 ML VIAL IV ONE (15:26)
[2017-12-06] MEDS ORDERED: LIDOCAINE 1% 5 ML VIAL ONE (15:26)
[2017-12-06] MEDS ORDERED: PHENYLEPHRINE 1 MG/10 ML SYRINGE IV ONE (15:26)
[2017-12-06] MEDS ORDERED: ETOMIDATE 20 MG/10 ML VIAL IV ONE (15:26)
[2017-12-07] MEDS: SODIUM CHLORIDE 0.9% 1,000 ML IV SCH (02:01)
[2017-12-07] MEDS: METOPROLOL TARTRATE 5 MG/5 ML VIAL IV SCH (05:58)
[2017-12-07] MEDS: METOCLOPRAMIDE 10 MG/2 ML VIAL IV SCH (06:05)
[2017-12-07 07:57] VITALS: BP 115/85
[2017-12-07] MEDS: PANTOPRAZOLE 40 MG VIAL IV SCH (09:16)
[2017-12-07] MEDS: ZINC OXIDE PASTE 113 GM TUBE TOP SCH (09:16)
== END 2017-12-07 09:50 | disposition hospice, home (50) | DRG 375 ==
LOC: EDBD → EDUNIT# → N.ED 11:03 → N.EDINP 15:26 → SUATTDRO 15:26 → N.TELEN 17:59
PROVIDERS: ADMIT Family Medicine; ATTEND Hospitalist
PROC: EGDWPEG (ICD-10-PCS; 2017-12-06 12:15)